=== PATIENT | female | born 1970 | race Two or more races ===

== ENCOUNTER 2017-02-02 12:30 | Emergency (ER) | payer OTHER ==
[2017-02-02 12:48] VITALS: BP 151/85; PULSE 53; RESP 16; TEMP 97.5; O2SAT 97
--- NOTE | 2017-02-02 13:02 | EDPHY ---
H & P Time Seen by Provider: 02/02/17 12:57 HPI/ROS: CHIEF COMPLAINT: Right knee pain HISTORY OF PRESENT ILLNESS: Injured when hit it on a ladder yesterday at work. She was unfolding it and some actor in the right kneecap. More painful today with bending or motion. REVIEW OF SYSTEMS: No other injuries PAST MEDICAL HISTORY: Hypertension Social history: Happened at her workplace, at [employer] General Appearance: Alert and conversant, cooperative. Patient has tenderness over the patella but good flexion to 90 in full extension passively. No skin laceration or discoloration. Compartments in the thigh and leg are soft. Stable to varus and valgus stress. Stable to anterior and posterior stress. Emergency Department course/MDM: X-ray shows degenerative diseases no acute fracture dislocation. Plan for knee brace, ibuprofen, work comp follow-up on Saturday. Smoking Status: Never smoked Constitutional: Initial Vital Signs Temperature (C) 36.4 C 02/02/17 12:32 Heart Rate 53 L 02/02/17 12:32 Respiratory Rate 16 02/02/17 12:32 Blood Pressure 151/85 H 02/02/17 12:32 O2 Sat (%) 97 02/02/17 12:32 O2 Delivery Mode Room Air Allergies/Adverse Reactions: No Known Allergies Allergy (Verified 02/02/17 12:48) Home Medications: Medication Instructions Recorded Amlodipine Besylate 02/02/17 Metoprolol Tartrate 02/02/17 MDM/Departure - Depart Disposition: Home, Routine, Self-Care Clinical Impression: Contusion of right knee Qualifiers: Encounter type: initial encounter Qualified Code(s): S80.01XA - Contusion of right knee, initial encounter Condition: Good Instructions: Knee Immobilizer (ED) Additional Instructions: No work today the 02 of February and tomorrow the 03 of February. Follow-up with [facility] worker's compensation clinic Saturday morning the 04 of February for further evaluation. Okay to take 600 mg oral ibuprofen every 8 hours for the next 3 days as needed for pain. Otherwise activity as tolerated. Referrals: [facility] [Other] - As per Instructions
== END 2017-02-02 13:27 | disposition home or self-care (01) ==
LOC: CED 12:30
DX: S80.01XA Contusion of right knee, initial encounter (principal); I10 Essential (primary) hypertension; W22.8XXA Striking against or struck by other objects, initial encounter; Y92.69 Other specified industrial and construction area as the place of occurrence of the external cause; Y99.0 Civilian activity done for income or pay; Y93.89 Activity, other specified
CPT/HCPCS: 73562-PO; L1830